=== PATIENT | female | born 1990 | race Hispanic/Latino ===

== ENCOUNTER 2017-05-09 15:58 | Emergency (ER) | payer OTHER, MEDICAID ==
[2017-05-09 16:17] VITALS: O2SAT 99
--- NOTE | 2017-05-09 17:56 | ED PDOC ---
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 Pt says she could ambulate ok on the knee but noticed the knee swelling. She had an left ACL replacement in 2008 and now worries that she may have sustained damage to the ligaments. Denies numbness and tingling, head injury, LOC, syncope, change in vision, back pain or other complaints. 05/09/17 22:06 Time/Duration: 1-3 hours Symptom Onset: Sudden Symptom Course: Improving Quality: Aching, Pressure Severity Level: Moderate Activities at Onset: Light Context: Work, School Past Medical History - Provider Review Nursing Documentation Reviewed: Yes - Travel History Have you recently traveled outside [place] w/in the past 3 mons?: No - Past History Past History: No Previous - Infectious Disease Hx of Infectious Diseases: None - Tetanus Immunization Tetanus Immunization: Unknown - Psychiatric Hx Substance Use: No Family/Social History - Physician Review Nursing Documentation Reviewed: Yes Family/Social History: Unknown Family HX Smoking Status: Never Smoked Hx Alcohol Use: No Hx Substance Use: No Allergies/Home Meds Allergies/Adverse Reactions: Allergies No Known Allergies Allergy (Verified 05/09/17 16:11) Review of Systems - Review of Systems Respiratory: Normal Cardiovascular: Normal Gastrointestinal: Normal Genitourinary Female: Normal Musculoskeletal: Joint Swelling (left knee) Skin: Normal Neurological: Normal Endocrine: Normal Hemo/Lymphatic: Normal Psychiatric: Normal Physical Exam Vital Signs Temp Pulse Resp BP Pulse Ox 05/09/17 19:40 98.7 F 89 16 119/65 99 05/09/17 16:16 98.6 F 106 H 18 117/68 99 Temperature: Afebrile Blood Pressure: Normal Pulse: Regular Respiratory Rate: Normal Appearance: Positive for: Well-Appearing, Non-Toxic, Comfortable Pain Distress: Mild Mental Status: Positive for: Alert and Oriented X 3 - Systems Exam Head: Present: Atraumatic, Normocephalic Conjunctiva: Present: Normal Neck: Present: Normal Range of Motion Respiratory/Chest: Present: Clear to Auscultation, Good Air Exchange. No: Respiratory Distress, Accessory Muscle Use Cardiovascular: Present: Regular Rate and Rhythm, Normal S1, S2. No: Murmurs Abdomen: Present: Normal Bowel Sounds. No: Tenderness, Distention, Peritoneal Signs Back: Present: Normal Inspection Upper Extremity: Present: Normal Inspection. No: Cyanosis, Edema Lower Extremity: Present: Normal Inspection, NORMAL PULSES, Normal ROM, Tenderness ( supra and infra patellar), Swelling (left patellar surface), Neurovascularly Intact, Capillary Refill < 2 s. No: Edema Neurological: Present: GCS=15, CN II-XII Intact, Speech Normal, Motor Func Grossly Intact (5/5 bilateral extremity), Normal Sensory Function, Normal Cerebellar Funct, Normal 2Pt Descrimination Skin: Present: Warm, Dry, Normal Color. 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 Plan 3 view knee XR assess and dispo with instructions to see orthopedist for MRI view Progress Suggested CT for f/u image; pt felt a migraine coming on and wanted to leave before results in; told her we would call if the CT revealed any further findings Advised to take Ibuprofen 600 mg PO q6 hrs prn for pain and inflammation R.I.C.E. for only one day and then should ambulate within pain tolerance Advised to see orthopedist; pt will be assigned to one as per worker's compensation - RAD Interpretation Narrative RAD Interpretations (Text): 05/09/17 19:20 Image does not reveal a judi fracture or dislocation but CT w/o contrast ordered to insure quality image. 05/09/17 22:00 EXAM: CT Left Lower Extremity Without Intravenous Contrast, Knee CLINICAL HISTORY: 26 years old, female; Injury or trauma; Fall; Initial encounter; Abrasion; Knee ; Left; Prior surgery; Surgery date: 6+ months; Surgery type: Acl repair TECHNIQUE: Axial computed tomography images of the left knee without intravenous contrast. All CT scans at this facility use one or more dose reduction techniques, viz.: automated exposure control; ma/kV adjustment per patient size (including targeted exams where dose is matched to indication; i.e. head); or iterative reconstruction technique. Coronal and sagittal reformatted images were created and reviewed. COMPARISON: DX - KNEE WITH PATELLA LEFT 3 VIEW 2017-05-09 18:06 FINDINGS: Limitations: Motion artifact - mild. Bones/joints: No acute fracture. Prior ACL repair. 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 No dislocation. Small joint effusion. Soft tissues: Anterior soft tissue stranding/hematoma. IMPRESSION: 1. No fracture. 2. If pain persists, suggest MRI to evaluate for occult fracture/internal arrangement. 3. Incidental/non-acute findings are described above. Radiology Orders: 05/09/17 17:11 KNEE WITH PATELLA LEFT 3 VIEW [RAD] Stat 05/09/17 19:11 KNEE WITHOUT CONTRAST LEFT [CT] Stat - Medication Orders Current Medication Orders: Discontinued Medications Ibuprofen (Motrin Tab) 600 mg PO STAT STA Stop: 05/09/17 18:15 Last Admin: 05/09/17 19:44 Dose: 600 mg MAR Pain/Vitals Document 05/09/17 19:44 AB (Rec: 05/09/17 19:44 AB [id number] Pain Reassessment Is This A Pain ReAssessment? Yes Sleep Is patient sleeping during reassessment? No Presence of Pain Presence of Pain Yes Pain Scale Used Pain Scale Used Numeric Location Left, Right or Bilateral Left Upper or Lower Lower Pain Location Body Site Knee Description Constant Intensity 3 Scale Used Numeric Disposition/Present on Arrival - Present on Arrival Any Indicators Present on Arrival: Yes History of DVT/PE: No History of Uncontrolled Diabetes: No Urinary Catheter: No History of Decub. Ulcer: No History Surgical Site Infection Following: None - Disposition Have Diagnosis and Disposition been Completed?: Yes Diagnosis: Patellar bursitis of left knee, Patellar contusion Disposition: HOME/ ROUTINE Disposition Time: 19:21 Isolation: Airborne Patient Plan: Discharge Condition: STABLE Discharge Instructions (ExitCare): Bursitis, Contusion (DC) Additional Instructions: Dear Patient, Please follow up with your orthopedist to assess for soft tissue damage especially concerning the ACL that was replaced in 2008. The images that we took today do not indicate a fracture or dislocation but there is swelling appreciated. Continue to apply ice, compression and rest for a day or so and take ibuprofen 600 mg by mouth every 6 hrs or as needed to control pain and swelling. If there are any questionable findings on the CT of the left knee, you will be called otherwise, please see an orthopedist for follow up. If you notice a worsening of pain and dysfunction, either return to the emergency department or see your doctor. All the best in your recovery! Referrals: Kayla Sotelo MD [Primary Care Provider] - Follow up with primary Forms: [employer] (Indonesian)
[2017-05-09 19:45] VITALS: BP 119/65; PULSE 89; RESP 16; TEMP 98.7
--- NOTE | 2017-05-09 20:57 | CT ---
EXAM: CT Left Lower Extremity Without Intravenous Contrast, Knee CLINICAL HISTORY: 26 years old, female; Injury or trauma; Fall; Initial encounter; Abrasion; Knee; Left; Prior surgery; Surgery date: 6+ months; Surgery type: Acl repair TECHNIQUE: Axial computed tomography images of the left knee without intravenous contrast. All CT scans at this facility use one or more dose reduction techniques, viz.: automated exposure control; ma/kV adjustment per patient size (including targeted exams where dose is matched to indication; i.e. head); or iterative reconstruction technique. Coronal and sagittal reformatted images were created and reviewed. COMPARISON: DX - KNEE WITH PATELLA LEFT 3 VIEW 2017-05-09 18:06 FINDINGS: Limitations: Motion artifact - mild. Bones/joints: No acute fracture. Prior ACL repair. 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 No dislocation. Small joint effusion. Soft tissues: Anterior soft tissue stranding/hematoma. IMPRESSION: 1. No fracture. 2. If pain persists, suggest MRI to evaluate for occult fracture/internal arrangement. 3. Incidental/non-acute findings are described above.
--- NOTE | 2017-05-10 08:06 | RAD ---
PROCEDURE: Left Knee Radiographs. HISTORY: Pain. COMPARISON: None. FINDINGS: BONES: Normal. No fracture. JOINTS: Normal. No osteoarthritis. JOINT EFFUSION: None. OTHER FINDINGS: There is an orthopedic screw in the tibial tuberosity. IMPRESSION: No acute findings
== END 2017-05-09 19:45 | disposition home or self-care (01) ==
LOC: ED 15:58
DX: M70.52 Other bursitis of knee, left knee (principal); S80.02XA Contusion of left knee, initial encounter; W01.0XXA Fall on same level from slipping, tripping and stumbling without subsequent striking against object, initial encounter; Y93.01 Activity, walking, marching and hiking; Y92.219 Unspecified school as the place of occurrence of the external cause; Y99.0 Civilian activity done for income or pay